=== PATIENT | male | born 1945 | race Native Hawaiian/Other Pacific Islander ===

== ENCOUNTER → 2016-10-20 | Outpatient (CLI) | payer OTHER ==
[~2016-10-20] MED LIST: LIDOCAINE 1% 30 ML SDV ONE; NA BICARBONATE 50 MEQ/50 ML VIAL ONE
--- NOTE | 2016-10-20 13:25 | US ---
Ultrasound-guided right axillary cyst aspiration History: Recurrent right axillary cystic lesion. Witnessed Consent: Witnessed informed consent was obtained after the risks, benefits, and alternativ es of ultrasound-guided right axillary cyst aspiration explained to the patient and all questions we re answered. Technique: Utilizing sterile technique and ultrasound guidance, a right axillary subcutaneous 3 x 2 x 1 cm cyst was identified. Chlorhexidine was utilized to prep the skin. Lidocaine 1% was utilized for local anesthesia. Then a 20-gauge sterile needle was placed under ultrasound guidance into the cyst and 6 mL of straw-colored fluid was removed. The cyst completely collapsed. Manual hemostasis was ach ieved after the needle was removed. Post imaging demonstrates complete collapse of the cyst. No immed iate complications. EBL = 0 mL. Impression: Successful ultrasound-guided aspiration of right axillary 3 x 2 x 1 cm cyst with 6 mL of straw-colored fluid removed. Crosscutting Measure #226: Current tobacco user: No.
== END ==
LOC: FIMAGING 12:11
PROVIDERS: ATTEND Family Medicine
PROC: 0J9D3ZZ Drainage of Right Upper Arm Subcutaneous Tissue and Fascia, Percutaneous Approach (ICD-10-PCS; principal; 2016-10-20)
DX: L72.3 Sebaceous cyst (principal)

== ENCOUNTER → 2018-05-19 | Outpatient (CLI) | payer OTHER | LOC: FIMAGING 15:39 | PROVIDERS: ATTEND Physician Assistant | DX: M89.312 Hypertrophy of bone, left shoulder (principal); M24.812 Other specific joint derangements of left shoulder, not elsewhere classified ==

== ENCOUNTER → 2018-06-02 | Outpatient (CLI) | payer OTHER | LOC: CIMAGING 13:26 | PROVIDERS: ATTEND Physician Assistant | DX: N63.20 Unspecified lump in the left breast, unspecified quadrant (principal) | CPT/HCPCS: 76641-PO ==